=== PATIENT | male | born 1975 | race Hispanic/Latino ===

== ENCOUNTER 2017-09-13 20:25 | Emergency (ER) | payer SELFPAY ==
[2017-09-13] MEDS ORDERED: CLONIDINE HCL 0.1 MG TABLET ONE (21:17)
[2017-09-13 21:28] LABS: BASOPHILS % (AUTO) 1.1 % (0.0-5.0); EOSINOPHILS % (AUTO) 5.5 % (0.0-8.0); HEMATOCRIT 47.1 % (42-54); LYMPHOCYTES % (AUTO) 26.6 % (21.0-51.0); MEAN CORPUSCULAR HEMOGLOBIN 33.1 pg (27.0-33.0); MEAN CORPUSCULAR HGB CONC 35.3 g/dL (32.0-36.0); MEAN CORPUSCULAR VOLUME 93.8 fL (79-99); MONOCYTES % (AUTO) 9.5 % (3.0-13.0); NEUTROPHILS % (AUTO) 57.3 % (40.0-77.0); NUCLEATED RED BLOOD CELLS 0.2 % (0.0-0.19); PLATELET COUNT (AUTO) 175 K/uL (130-400); RED BLOOD CELL COUNT(AUTO) 5.02 MIL/uL (4.50-6.20); RED CELL DISTRIBUTION WIDTH 12.6 % (11.0-15.5); WHITE BLOOD COUNT (AUTO) 7.7 K/uL (4.8-10.8)
[2017-09-13 21:30] LABS: APPEARANCE,URINE Clear (CLEAR); BILIRUBIN,URINE Negative (NEGATIVE); COLOR,URINE Yellow (YELLOW); GLUCOSE, URINE (UA) 500 mg/dL (NEGATIVE); KETONES,URINE Negative (NEGATIVE); LEUKOCYTE ESTERASE ,URINE Negative (NEGATIVE); NITRATE,URINE Negative (NEGATIVE); OCCULT BLOOD,URINE Trace (NEGATIVE); PROTEIN,URINE Negative (NEGATIVE); UROBILINOGEN,URINE 0.2 mg/dL (0.2-1.0)
[2017-09-13 21:36] LABS: AMPHET/METH SCREEN,URINE NEGATIVE (NEGATIVE); BARBITURATE SCREEN, URINE NEGATIVE (NEGATIVE); BENZODIAZEPINES SCREEN,URINE NEGATIVE (NEGATIVE); CANNABINOID SCREEN,URINE NEGATIVE (NEGATIVE); COCAINE SCREEN,URINE POSITIVE (NEGATIVE); OPIATE SCREEN,URINE NEGATIVE (NEGATIVE); PHENCYCLIDINE SCREEN,URINE NEGATIVE (NEGATIVE)
[2017-09-13 21:37] LABS: CREATININE 0.7 mg/dL (0.5-1.5); POTASSIUM 3.8 mmol/L (3.5-5.1)
[2017-09-13 21:40] LABS: WBC,URINE 0-1 /HPF (0-1)
[2017-09-13 21:41] LABS: BACTERIA,URINE Rare /HPF (None Seen); SQUAMOUS EPITHELIAL CELL,UR None Seen /HPF (0-2)
[2017-09-13 21:42] LABS: ALBUMIN 3.2 g/dL (3.5-5.0); BILIRUBIN,TOTAL 0.5 mg/dL (0.2-1.0); TOTAL PROTEIN, SERUM 6.8 g/dL (6.0-8.3)
== END 2017-09-13 23:38 | disposition home or self-care (01) ==
LOC: EDH 20:25
DX: I10 Essential (primary) hypertension (principal); G89.29 Other chronic pain; M54.5 Low back pain; E11.9 Type 2 diabetes mellitus without complications; Z72.0 Tobacco use
CPT/HCPCS: 36415; 80053; 80305; 81001; 84484; 85025; 93005

== ENCOUNTER 2020-12-02 10:57 | Emergency (ER) | payer OTHER ==
[~2020-12-02] VITALS: Ht 172.7 cm; Wt 72.6 kg
[2020-12-02 11:17] VITALS: BP 145/84
[2020-12-02] MEDS ORDERED: IBUPROFEN 600 MG TABLET ONE (11:29)
[2020-12-02] MEDS ORDERED: IBUPROFEN 600 MG TABLET PO SCH (11:30)
== END 2020-12-02 11:40 | disposition home or self-care (01) ==
LOC: EDH 10:57
DX: S40.862A Insect bite (nonvenomous) of left upper arm, initial encounter (principal); M79.622 Pain in left upper arm; I10 Essential (primary) hypertension; E11.9 Type 2 diabetes mellitus without complications; F41.9 Anxiety disorder, unspecified; W57.XXXA Bitten or stung by nonvenomous insect and other nonvenomous arthropods, initial encounter; Y93.89 Activity, other specified; Y92.89 Other specified places as the place of occurrence of the external cause; Y99.8 Other external cause status
CPT/HCPCS: 99282

== ENCOUNTER 2020-12-20 21:24 | Emergency (ER) | payer OTHER ==
[~2020-12-20] VITALS: Ht 172.7 cm; Wt 74.4 kg
[2020-12-20] MEDS ORDERED: KETOROLAC 30MG VIAL (30MG/ML) IVP ONE (22:00)
[2020-12-20] MEDS ORDERED: 0.9%NACL 1000ML 1,000 ML IV ONE ×2 (22:00→22:19)
[2020-12-20 22:03] LABS: BASOPHILS % (AUTO) 0.5 % (0.0-5.0); EOSINOPHILS % (AUTO) 1.6 % (0.0-8.0); HEMATOCRIT 45.1 % (42-54); LYMPHOCYTES % (AUTO) 11.3 % (21.0-51.0); MEAN CORPUSCULAR HEMOGLOBIN 31.9 pg (27.0-33.0); MEAN CORPUSCULAR HGB CONC 36.6 g/dL (32.0-36.0); MEAN CORPUSCULAR VOLUME 87.2 fL (79-99); MONOCYTES % (AUTO) 7.4 % (3.0-13.0); NEUTROPHILS % (AUTO) 78.9 % (40.0-77.0); PLATELET COUNT (AUTO) 188 K/uL (130-400); RED BLOOD CELL COUNT(AUTO) 5.17 MIL/uL (4.50-6.20); RED CELL DISTRIBUTION WIDTH 12.1 % (11.0-15.5); WHITE BLOOD COUNT (AUTO) 12.7 K/uL (4.8-10.8)
[2020-12-20 22:20] LABS: CREATININE 0.8 mg/dL (0.5-1.5); POTASSIUM 3.3 mmol/L (3.5-5.1)
[2020-12-20 22:22] LABS: APPEARANCE,URINE Clear (CLEAR); BILIRUBIN,URINE Negative (NEGATIVE); COLOR,URINE Yellow (YELLOW); GLUCOSE, URINE (UA) >=1000 mg/dL (NEGATIVE); KETONES,URINE 15 mg/dL (NEGATIVE); LEUKOCYTE ESTERASE ,URINE Negative (NEGATIVE); NITRATE,URINE Negative (NEGATIVE); OCCULT BLOOD,URINE Nonhemolyzed Trace (NEGATIVE); PH,URINE 7.5 (5.0-8.0); PROTEIN,URINE Negative (NEGATIVE); UROBILINOGEN,URINE 0.2 mg/dL (0.2-1.0)
[2020-12-20 22:29] LABS: ALBUMIN 4.1 g/dL (3.5-5.0); BILIRUBIN,TOTAL 0.6 mg/dL (0.2-1.0); TOTAL PROTEIN, SERUM 8.2 g/dL (6.0-8.3)
[2020-12-20 22:32] LABS: BACTERIA,URINE Rare /HPF (None Seen); WBC,URINE 0-1 /HPF (0-1)
[2020-12-20 22:33] LABS: SQUAMOUS EPITHELIAL CELL,UR None Seen /HPF (0-2)
[2020-12-20 23:00] VITALS: BP 172/96
== END 2020-12-21 01:26 | disposition home or self-care (01) ==
LOC: EDH 21:24
DX: E11.65 Type 2 diabetes mellitus with hyperglycemia (principal); R51.9 Headache, unspecified; E78.00 Pure hypercholesterolemia, unspecified; I10 Essential (primary) hypertension; Z98.890 Other specified postprocedural states; Z79.1 Long term (current) use of non-steroidal anti-inflammatories (NSAID)
CPT/HCPCS: 36415; 80053; 81001; 83690; 85025; 96361; 96374; 99283; J1885; J7030

== ENCOUNTER 2021-10-10 19:27 | Emergency (ER) | payer OTHER ==
[~2021-10-10] VITALS: Ht 172.7 cm; Wt 83.0 kg
[2021-10-10 19:29] VITALS: BP 106/57
[2021-10-10] MEDS ORDERED: KETOROLAC 30MG VIAL (30MG/ML) IM ONE (20:30)
[2021-10-10] MEDS ORDERED: ORPHENADRINE CITRATE 30 MG/ML ML IM ONE (20:30)
[2021-10-10] MEDS ORDERED: NAPR500T6 PO (20:34)
[2021-10-10] MEDS ORDERED: CYCL10TA16 PO (20:34)
== END 2021-10-10 21:22 | disposition home or self-care (01) ==
LOC: EDH 19:27
DX: M54.6 Pain in thoracic spine (principal); I10 Essential (primary) hypertension; E11.9 Type 2 diabetes mellitus without complications; F32.9 Major depressive disorder, single episode, unspecified; F41.9 Anxiety disorder, unspecified; Z98.890 Other specified postprocedural states; Z79.899 Other long term (current) drug therapy
CPT/HCPCS: 93005; 96372 ×2; 99284; J1885; J2360

== ENCOUNTER 2021-11-25 19:29 | Emergency (ER) | payer OTHER ==
[~2021-11-25] VITALS: Ht 172.7 cm; Wt 83.5 kg
[~2021-11-25 19:29] MED LIST: CYCL10TA16 PO; NAPR500T6 PO
[2021-11-25] MEDS ORDERED: D-ME1POW16 PO (20:37)
[2021-11-25 20:39] VITALS: BP 146/77
== END 2021-11-25 20:49 | disposition home or self-care (01) ==
LOC: EDH 19:29
DX: J06.9 Acute upper respiratory infection, unspecified (principal); R05.9 Cough, unspecified; Z20.822 Contact with and (suspected) exposure to COVID-19; E11.9 Type 2 diabetes mellitus without complications; I10 Essential (primary) hypertension; F41.9 Anxiety disorder, unspecified; Z79.899 Other long term (current) drug therapy; Z98.890 Other specified postprocedural states
CPT/HCPCS: 87635; 87804 ×2; 87880; 99283; C9803

== ENCOUNTER 2022-09-28 17:03 | Emergency (ER) | payer BC, OTHER ==
[~2022-09-28] VITALS: Ht 172.7 cm; Wt 86.2 kg
[~2022-09-28 17:03] MED LIST changes: +D-ME1POW16 PO
[2022-09-28 17:12] VITALS: BP 177/87
[2022-09-28] MEDS ORDERED: KETO10TA2 PO (17:49)
[2022-09-28] MEDS ORDERED: CYCL5TAB PO (17:49)
== END 2022-09-28 17:58 | disposition home or self-care (01) ==
LOC: EDH 17:03
DX: M62.830 Muscle spasm of back (principal); E11.9 Type 2 diabetes mellitus without complications; I10 Essential (primary) hypertension

== ENCOUNTER 2022-10-31 08:25 | Emergency (ER) | payer BC ==
[~2022-10-31] VITALS: Ht 172.7 cm; Wt 83.9 kg
[~2022-10-31 08:25] MED LIST changes: +CYCL5TAB PO; +KETO10TA2 PO
[2022-10-31 08:28] VITALS: BP 131/85
[2022-10-31] MEDS ORDERED: SULF1TAB42 PO (08:31)
[2022-10-31] MEDS ORDERED: MUPI22OI2 TP (08:31)
[2022-10-31] MEDS ORDERED: IBUPROFEN 800 MG TAB PO ONE (09:00)
== END 2022-10-31 08:57 | disposition home or self-care (01) ==
LOC: EDH 08:25
DX: T63.301A Toxic effect of unspecified spider venom, accidental (unintentional), initial encounter (principal); I10 Essential (primary) hypertension; E11.9 Type 2 diabetes mellitus without complications; Z79.899 Other long term (current) drug therapy; Y92.89 Other specified places as the place of occurrence of the external cause

== ENCOUNTER 2022-12-31 07:29 | Emergency (ER) | payer BC, OTHER ==
[~2022-12-31] VITALS: Ht 172.7 cm; Wt 82.6 kg
[~2022-12-31 07:29] MED LIST changes: +MUPI22OI2 TP; +SULF1TAB42 PO
[2022-12-31] MEDS ORDERED: FAMOTIDINE 20MG TAB PO ONE (09:30)
[2022-12-31] MEDS ORDERED: KETOROLAC 10 MG TABLET PO SCH (09:30)
[2022-12-31] MEDS ORDERED: VALACYCLOVIR HCL 500 MG TABLET PO SCH (09:30)
[2022-12-31] MEDS ORDERED: VALA100031 PO (10:34)
[2022-12-31 11:08] VITALS: BP 136/84; PULSE 84; RESP 18; O2SAT 98
== END 2022-12-31 11:10 | disposition home or self-care (01) ==
LOC: EDH 07:29
DX: B02.9 Zoster without complications (principal); I10 Essential (primary) hypertension; E11.9 Type 2 diabetes mellitus without complications; F31.9 Bipolar disorder, unspecified; F41.9 Anxiety disorder, unspecified

== ENCOUNTER 2023-08-16 12:51 | Emergency (ER) | payer OTHER ==
[~2023-08-16] VITALS: Ht 172.7 cm; Wt 81.6 kg
[~2023-08-16 12:51] MED LIST changes: +VALA100031 PO
[2023-08-16 12:57] VITALS: RESP 14
[2023-08-16 13:02] VITALS: BP 126/75; PULSE 103; O2SAT 96
== END 2023-08-16 13:50 | disposition left against medical advice (07) ==
LOC: EDH 12:51
DX: R51.9 Headache, unspecified (principal); Z53.21 Procedure and treatment not carried out due to patient leaving prior to being seen by health care provider
CPT/HCPCS: 99281

== ENCOUNTER 2023-09-27 06:26 | Observation (INO) | payer OTHER ==
[~2023-09-27] VITALS: Ht 172.7 cm; Wt 79.4 kg
[2023-09-27 07:48] LABS: BASOPHILS # (AUTO) 0.04 K/uL (0.00-0.20); BASOPHILS % (AUTO) 0.6 % (0.0-5.0); EOSINOPHILS # (AUTO) 0.18 K/uL (0.00-0.70); EOSINOPHILS % (AUTO) 2.5 % (0.0-8.0); HEMATOCRIT 43.6 % (42-54); IMMATURE GRANULOCYTE ABSOLUTE 0.03 K/uL (0-1); LYMPHOCYTES # (AUTO) 1.4 K/uL (1.0-4.8); LYMPHOCYTES % (AUTO) 19.6 % (21.0-51.0); MEAN CORPUSCULAR HEMOGLOBIN 32.5 pg (27.0-33.0); MEAN CORPUSCULAR HGB CONC 36.9 g/dL (32.0-36.0); MEAN CORPUSCULAR VOLUME 88.1 fL (79-99); MONOCYTES # (AUTO) 1.3 K/uL (0.1-1.0); MONOCYTES % (AUTO) 18.2 % (3.0-13.0); NEUTROPHILS # (AUTO) 4.2 K/uL (1.8-7.7); NEUTROPHILS % (AUTO) 58.7 % (40.0-77.0); PLATELET COUNT (AUTO) 165 K/uL (130-400); RED BLOOD CELL COUNT(AUTO) 4.95 MIL/uL (4.50-6.20); RED CELL DISTRIBUTION WIDTH 12.3 % (11.0-15.5); WHITE BLOOD COUNT (AUTO) 7.2 K/uL (4.8-10.8)
[2023-09-27 08:03] LABS: ALBUMIN 3.3 g/dL (3.5-5.0); BILIRUBIN,TOTAL 0.7 mg/dL (0.2-1.0); CREATININE 0.7 mg/dL (0.5-1.3); POTASSIUM 3.9 mmol/L (3.5-5.1); TOTAL PROTEIN, SERUM 7.8 g/dL (6.0-8.3)
[2023-09-27] MEDS: FAMOTIDINE 20MG VIAL IV ONE (08:03)
[2023-09-27] MEDS: 0.9%NACL 1000ML 1,000 ML IV ONE (08:03)
[2023-09-27 08:04] LABS: APPEARANCE,URINE CLEAR (CLEAR); BILIRUBIN,URINE NEGATIVE (NEGATIVE); COLOR,URINE LIGHT-YELLOW (YELLOW); GLUCOSE, URINE (UA) 30 mg/dL (NEGATIVE); KETONES,URINE NEGATIVE (NEGATIVE); LEUKOCYTE ESTERASE ,URINE NEGATIVE Leu/uL (NEGATIVE); NITRATE,URINE NEGATIVE (NEGATIVE); PH,URINE 5.5 (5.0-8.0); PROTEIN,URINE 10 mg/dL (NEGATIVE); UROBILINOGEN,URINE 0.2 mg/dL (0.2-1.0)
[2023-09-27] MEDS: LORAZEPAM 2 MG/ML 1 ML VIAL IVP ONE (08:04)
[2023-09-27] MEDS: MAG/ALUM/SIMETH 30 ML UDCUP PO ONE (08:04)
[2023-09-27] MEDS: METOCLOPRAMIDE 10 MG/2 ML VIAL IVP ONE (08:04)
[2023-09-27] MEDS: LIDOCAINE HCL 2% VISCOUS 15 ML UDCUP PO ONE (08:04)
[2023-09-27] MEDS: DICYCLOMINE HCL 10 MG/5 ML ML PO ONE (08:04)
[2023-09-27] MEDS: NITROGLYCERIN 1GM OINT 1 INCH/1GM TD ONE (08:05)
[2023-09-27 08:08] LABS: ADD UA MICROSCOPIC YES
[2023-09-27 08:12] LABS: AMPHET/METH SCREEN,URINE NEGATIVE (NEGATIVE); BARBITURATE SCREEN, URINE NEGATIVE (NEGATIVE); BENZODIAZEPINES SCREEN,URINE NEGATIVE (NEGATIVE); CANNABINOID SCREEN,URINE NEGATIVE (NEGATIVE); COCAINE SCREEN,URINE POSITIVE (NEGATIVE); OPIATE SCREEN,URINE NEGATIVE (NEGATIVE); PHENCYCLIDINE SCREEN,URINE NEGATIVE (NEGATIVE)
[2023-09-27 08:30] LABS: MUCUS,URINE RARE LPF (None Seen); RBC,URINE 0-1 /HPF (0-1); WBC,URINE 0-1 /HPF (0-1)
[2023-09-27] MEDS: METRONIDAZOLE 500MG/100ML BAG 100 ML IVPB SCH (08:41)
[2023-09-27] MEDS: ASPIRIN 325MG TAB PO ONE (09:36)
[2023-09-27] MEDS ORDERED: POTASSIUM CHLORIDE 20MEQ/100ML 100 ML IV PRN (11:30)
[2023-09-27] MEDS ORDERED: POTASSIUM CHLORIDE 10% ELIXIR 20 MEQ/15 ML UDCUP PO PRN (11:30)
[2023-09-27] MEDS ORDERED: METRONIDAZOLE 500MG/100ML BAG 100 ML IVPB SCH (14:00)
[2023-09-27 19:46] VITALS: BP 148/84; PULSE 80; RESP 18
[2023-09-27 23:00] VITALS: BP 145/77; PULSE 80; RESP 18
[2023-09-27 23:22] VITALS: O2SAT 97
[2023-09-28 03:00] VITALS: BP 158/87; PULSE 77; RESP 18
[2023-09-28 05:54] LABS: BASOPHILS # (AUTO) 0.04 K/uL (0.00-0.20); BASOPHILS % (AUTO) 0.8 % (0.0-5.0); EOSINOPHILS # (AUTO) 0.18 K/uL (0.00-0.70); EOSINOPHILS % (AUTO) 3.6 % (0.0-8.0); HEMATOCRIT 42.5 % (42-54); IMMATURE GRANULOCYTE ABSOLUTE 0.02 K/uL (0-1); LYMPHOCYTES # (AUTO) 1.4 K/uL (1.0-4.8); MEAN CORPUSCULAR HEMOGLOBIN 32.7 pg (27.0-33.0); MEAN CORPUSCULAR HGB CONC 36.2 g/dL (32.0-36.0); MEAN CORPUSCULAR VOLUME 90.2 fL (79-99); MONOCYTES # (AUTO) 0.7 K/uL (0.1-1.0); NEUTROPHILS # (AUTO) 2.7 K/uL (1.8-7.7); NEUTROPHILS % (AUTO) 53.2 % (40.0-77.0); PLATELET COUNT (AUTO) 152 K/uL (130-400); RED BLOOD CELL COUNT(AUTO) 4.71 MIL/uL (4.50-6.20); RED CELL DISTRIBUTION WIDTH 12.3 % (11.0-15.5)
[2023-09-28 06:26] LABS: ALBUMIN 2.7 g/dL (3.5-5.0); BILIRUBIN,TOTAL 0.6 mg/dL (0.2-1.0); CREATININE 0.7 mg/dL (0.5-1.3); MAGNESIUM 1.6 mg/dL (1.80-2.40); POTASSIUM 3.7 mmol/L (3.5-5.1); TOTAL PROTEIN, SERUM 6.5 g/dL (6.0-8.3)
[2023-09-28] MEDS: MAGNESIUM 2GM PREMIX 50ML 50 ML IV PRN (07:28)
[2023-09-28 07:50] VITALS: BP 133/80; PULSE 69; RESP 18
[2023-09-28 08:00] VITALS: O2SAT 97
[2023-09-28] MEDS: KCL 20 MEQ ERTAB PO PRN (09:20)
[2023-09-28] MEDS ORDERED: GLIM2TAB30 PO (09:28)
[2023-09-28] MEDS ORDERED: MUPI22O TP (09:28)
[2023-09-28] MEDS ORDERED: BUSP15 PO (09:28)
[2023-09-28] MEDS ORDERED: LISI1TAB51 PO (09:28)
[2023-09-28] MEDS ORDERED: ALBU2.5V2 NEB (09:28)
[2023-09-28] MEDS ORDERED: PIOG15TA66 PO (09:28)
[2023-09-28] MEDS ORDERED: OMEP40CA21 PO (09:28)
[2023-09-28 11:51] VITALS: BP 146/83; PULSE 75; RESP 16
== END 2023-09-28 15:40 | disposition home or self-care (01) ==
LOC: EDH 06:26 → EDHIP 06:27 → 3AH 14:57
PROVIDERS: ADMIT Internal Medicine Infectious Disease; ATTEND Internal Medicine Infectious Disease
DX: K52.9 Noninfective gastroenteritis and colitis, unspecified (principal); I10 Essential (primary) hypertension; F31.9 Bipolar disorder, unspecified; E11.9 Type 2 diabetes mellitus without complications; F41.8 Other specified anxiety disorders; G43.909 Migraine, unspecified, not intractable, without status migrainosus; F14.10 Cocaine abuse, uncomplicated; Z79.899 Other long term (current) drug therapy
CPT/HCPCS: 96361; 96365; 96375 ×2; 99284; 82550; 84484 ×3; 80053 ×2; 80305; 83690; 85025 ×2; 82948 ×4; 83605; 81001; 36415 ×2; 93005; 83735; G0378 ×29; J3490 ×2; J7030; J2060; J2765; J3475

== ENCOUNTER 2023-10-16 10:37 | Emergency (ER) | payer BC, OTHER ==
[~2023-10-16] VITALS: Ht 172.7 cm; Wt 78.9 kg
[~2023-10-16 10:37] MED LIST changes: +ALBU2.5V2 NEB; +BUSP15 PO; +GLIM2TAB30 PO; -KETO10TA2 PO; +LISI1TAB51 PO; +MUPI22O TP; -MUPI22OI2 TP; +OMEP40CA21 PO; +PIOG15TA66 PO; -SULF1TAB42 PO; -VALA100031 PO
[2023-10-16 11:05] VITALS: BP 165/90; PULSE 85; RESP 17; O2SAT 95
== END 2023-10-16 13:42 | disposition left against medical advice (07) ==
LOC: EDH 10:37
DX: R04.0 Epistaxis (principal); I10 Essential (primary) hypertension; E11.9 Type 2 diabetes mellitus without complications; Z79.899 Other long term (current) drug therapy; Z98.890 Other specified postprocedural states
CPT/HCPCS: 99281

== ENCOUNTER 2024-05-28 09:40 | Emergency (ER) | payer BC ==
[~2024-05-28] VITALS: Ht 172.7 cm; Wt 84.4 kg
[~2024-05-28 09:40] MED LIST changes: -CYCL5TAB PO; +CYCL5TAB3 PO; +NAPR-1506 PO; -NAPR500T6 PO
[2024-05-28] MEDS ORDERED: DIPH25CA85 PO (10:25)
--- NOTE | 2024-05-28 10:25 | ERN ---
ED Note History of Present Illness Stated Complaint: ALLERGIC REACTION Chief Complaint: Allergic Reaction Time Seen by MD: 09:46 Dictation: 49-year-old male presents to the ED for evaluation of allergic reaction onset last night. Patient reports itchiness, loose stools, but denies any nausea, shortness a breath or any other associated symptoms at this time. Patient is allergic to pork and states they took pork tamales to work last night which may have caused his symptoms. Patient mentioned he had an episode where he strug gled to breathe but denies any shortness a breath at this time. Allergies: Coded Allergies: No Known Drug Allergies (Verified Allergy, Unknown, 04/24/16) Home Meds Active Scripts Diphenhydramine HCl (Benadryl) 25 Mg Capsule, 1 CAP PO HS for 30 Days, #30 CAP 0 Refills Prov:BOOKER PANDYA MD 05/28/24 Cyclobenzaprine HCl (Cyclobenzaprine HCl) 5 Mg Tablet, 10 MG PO Q8H PRN for PAIN for 7 Days, #21 TAB Prov:ROGERS MARTINES NP 09/28/22 D-Methorphan/PE/Acetaminophen (Theraflu Ms Severe Cold Pckt) 1 Each Powd.pack, 1 EACH PO QIDP, #20 PACK Prov:MARTHA WASHINGTON 11/25/21 Naproxen (Naproxen) 500 Mg Tablet.dr, 500 MG PO BIDPC, #15 TAB Prov:MATTHEW FREITASP 10/10/21 Cyclobenzaprine HCl (Flexeril) 10 Mg Tab, 10 MG PO TID, #15 TAB Prov:MATTHEW FREITAS SUPERVISOR BODY ASSEMBLY 10/10/21 Reported Medications Albuterol Sulfate (Albuterol Sulfate) 2.5 Mg/3 Ml (0.083 %) Vial.neb, 1 VIAL NEB Q6HPRN PRN for BRONCHOSPASMS 09/28/23 Mupirocin (Bactroban 2% Oint) 2 % Oint, 1 APPL TP TID 09/28/23 Omeprazole (Omeprazole) 40 Mg Capsule.dr, 1 CAP PO DAILY 09/28/23 Glimepiride (Glimepiride) 2 Mg Tablet, 1 TAB PO DAILY 09/28/23 Pioglitazone HCl (Pioglitazone HCl) 15 Mg Tablet, 1 TAB PO DAILY 09/28/23 Buspirone HCl (Buspar) 15 Mg Tab, 1 TAB PO BID 09/28/23 Lisinopril/Hydrochlorothiazide (Lisinopril-Hctz 20-12.5 mg Tab) 20 Mg-12.5 Mg Tablet, 1 TAB PO DAILY 09/28/23 Past Medical History Past Medical History: Anxiety, Bipolar, Depression, Diabetes-Type II, Hypertension Surgical History: Other Surgical History Other: L KNEE, L ARM Family History: Negative Social History: Negative Review of System Dictation Constitutional: Negative for fever,chills, and weight loss Eyes: Negative for injury, pain,redness, and discharge ENT: Negative for injury,pain or swelling Cardiovascular: Negative for chest pain, palpitations, and edema Respiratory: Negative for shortness of breath, cough, and wheezing, Abdomen/GI: Negative for abdominal pain, nausea, vomiting, diarrhea, and constipation Back: Negative for injury and pain : Negative for injury, bleeding and discharge MS/Extremity: Negative for injury and deformity Skin: Positive for allergic reaction, rash, itchiness Neuro: Negative for headache, weakness, numbness, tingling, and seizure Psych: Negative for suicide ideation, homicidal ideation, and hallucinations Initial Vital Sign VS Vital Signs Date Time Temp Pulse Resp B/P (MAP) Pulse Ox O2 Delivery O2 Flow Rate FiO2 05/28/24 09:43 98.2 83 18 185/89 99 05/28/24 10:28 Room Air* 0 21 Physical Exam Dictation General: awake, alert, NAD Head/Face: Normocephalic, atraumatic Eyes: PERRL, EOMI, vision at baseline ENT: oral cavity clear, TMs clear, no signs of infection Neck: Trachea midline, supple, no nuchal rigidity Cardiovascular: RRR, normal S1/S2, No MRGs, no JVD Respiratory: CTAB, no respiratory distress, No rales or wheezes Abdomen: Soft, non-tender, non-distended, normal bowel sounds, no guarding or rebound. Skin: Warm, dry, normal turgor, no rash MS/Extremity: Pulses equal, no cyanosis, neurovascular intact, FROM Neuro: COAx4, GCS 15, strength 5/5, CN 2-12 intact, normal cerebellar exam, normal gait, Psych: Normal behavior, mood, and affect normal ED Course ED Course Orders Procedure Category Date Status Time Dexamethasone 4mg/Ml PHA 05/28/24 Complete 1ml Vial (Dexametha 10:30 Current Medications Medications (Trade) Dose Ordered Sig/Jeff Route PRN Reason Start Time Stop Time Status Last Admin Dose Admin Dexamethasone Sodium Phosphate (dexaMETHasone 4MG/ML 1ML VIAL) 6 mg ONCE ONCE IM 05/28/24 10:30 05/28/24 10:31 DC 05/28/24 10:27 Vital Signs Date Time Temp Pulse Resp B/P (MAP) Pulse Ox O2 Delivery O2 Flow Rate FiO2 05/28/24 10:28 98.2 80 18 171/88 99 Room Air* 0 21 05/28/24 09:43 98.2 83 18 185/89 99 Medical Decision Making MDM MDM: Differential diagnosis: Rash, allergic reaction Previous outside records reviewed: Old ER visits. Need for hospitalization: Patient does not meet criteria for hospitalization. Need for emergency major/minor surgery: No Patient's prior external medical records from other ER visits were reviewed by me as indicated. Prior testing and results from previous visits were reviewed. Prior tests were taken into account with medical decision making and resource utilization, independent historian/historians were used to obtain complete medical history. I independently interpreted the test that were performed, results were reviewed by me and considered findings on radiology if ordered. Medical management and examination interpretation discussions were had by me with other qualified healthcare professionals as indicated for the patient's care. DX & DISP Disposition: Discharge Departure Impression: Primary Impression: Acute allergic reaction Condition: Stable Scripts Diphenhydramine HCl (Benadryl) 25 Mg Capsule 1 CAP PO HS for 30 Days, #30 CAP 0 Refills Prov: BOOKER PANDYA MD 05/28/24 Referrals: MARIA EUGENIA WOOD MD (PCP) I have reviewed, & agreed with my scribe's, documentation. (Entered by Reynaldo Santos, acting as a scribe for Dr. Pandya) I personally scribed for BOOKER PANDYA MD ([email or web address]) on 05/28/24 at 10:33. Electronically submitted by Reynaldo Santos ([email or web address]). BOOKER PANDYA MD May 28, 2024 10:25
[2024-05-28] MEDS: dexaMETHasone SOD PHOSPHATE 4 MG/ML 1ML VIAL IM ONE (10:27)
[2024-05-28 10:28] VITALS: BP 171/88; PULSE 80; RESP 18; TEMP 98.2; O2SAT 99
== END 2024-05-28 10:35 | disposition home or self-care (01) ==
LOC: EDH 09:40
DX: T78.1XXA Other adverse food reactions, not elsewhere classified, initial encounter (principal); L29.9 Pruritus, unspecified; E11.9 Type 2 diabetes mellitus without complications; I10 Essential (primary) hypertension; F41.9 Anxiety disorder, unspecified; F31.9 Bipolar disorder, unspecified; Z91.014 Allergy to mammalian meats; Z79.84 Long term (current) use of oral hypoglycemic drugs; Z79.899 Other long term (current) drug therapy; X58.XXXA Exposure to other specified factors, initial encounter
CPT/HCPCS: 99284; 96372; J1100

== ENCOUNTER 2024-08-14 20:03 | Emergency (ER) | payer BC ==
[~2024-08-14] VITALS: Ht 170.2 cm; Wt 99.8 kg
[~2024-08-14 20:03] MED LIST changes: +DIPH25CA85 PO
--- NOTE | 2024-08-14 20:47 | ERN ---
General Chief Complaint: Insect Bite Stated Complaint: ANIMAL BITE Time Seen by MD: 20:06 Time Seen by Midlevel: 20:06 Source: patient History of Present Illness Initial Comments 49-year-old male who presents to the emergency department due to an insect bites. States it occurred last night after getting home from work, noticed his hand swelling and getting red. The patient reports he took two Benadryl prior to arrival and is now feeling drowsy. Denies any further associated symptoms. PMHx anxiety, bipolar, HTN, DM Allergies: Coded Allergies: No Known Drug Allergies (Verified Allergy, Unknown, 04/24/16) Home Meds Active Scripts Diphenhydramine HCl (Benadryl) 25 Mg Capsule, 1 CAP PO HS for 30 Days, #30 CAP 0 Refills Prov:BOOKER PANDYA MD 05/28/24 Cyclobenzaprine HCl (Cyclobenzaprine HCl) 5 Mg Tablet, 10 MG PO Q8H PRN for PAIN for 7 Days, #21 TAB Prov:ROGERS MARTINES NP 09/28/22 D-Methorphan/PE/Acetaminophen (Theraflu Ms Severe Cold Pckt) 1 Each Powd.pack, 1 EACH PO QIDP, #20 PACK Prov:MARTHA WASHINGTON 11/25/21 Naproxen (Naproxen) 500 Mg Tablet.dr, 500 MG PO BIDPC, #15 TAB Prov:MATTHEW FREITAS ASIC DESIGN ENGINEER 10/10/21 Cyclobenzaprine HCl (Flexeril) 10 Mg Tab, 10 MG PO TID, #15 TAB Prov:MATTHEW FREITAS ASIC DESIGN ENGINEER 10/10/21 Reported Medications Albuterol Sulfate (Albuterol Sulfate) 2.5 Mg/3 Ml (0.083 %) Vial.neb, 1 VIAL NEB Q6HPRN PRN for BRONCHOSPASMS 09/28/23 Mupirocin (Bactroban 2% Oint) 2 % Oint, 1 APPL TP TID 09/28/23 Omeprazole (Omeprazole) 40 Mg Capsule.dr, 1 CAP PO DAILY 09/28/23 Glimepiride (Glimepiride) 2 Mg Tablet, 1 TAB PO DAILY 09/28/23 Pioglitazone HCl (Pioglitazone HCl) 15 Mg Tablet, 1 TAB PO DAILY 09/28/23 Buspirone HCl (Buspar) 15 Mg Tab, 1 TAB PO BID 09/28/23 Lisinopril/Hydrochlorothiazide (Lisinopril-Hctz 20-12.5 mg Tab) 20 Mg-12.5 Mg Tablet, 1 TAB PO DAILY 09/28/23 Past Medical History Past Medical History: Anxiety, Bipolar, Depression, Diabetes-Type II, Hypertension Past Surgical History: None Surgical History Other: L KNEE, L ARM Family History Family History: Negative Social History Social History: Negative ROS Dictation Constitutional: Negative for fever,chills, and weight loss Eyes: Negative for injury, pain,redness, and discharge ENT: Negative for injury,pain or swelling Cardiovascular: Negative for chest pain, palpitations, and edema Respiratory: Negative for shortness of breath, cough, and wheezing, Abdomen/GI: Negative for abdominal pain, nausea, vomiting, diarrhea, and constipation Back: Negative for injury and pain : Negative for painful urination, bleeding or discharge MS/Extremity: Negative for injury and deformity Skin: Positive for insect bites/rash Negative for rash, and discoloration Neuro: Negative for headache, weakness, numbness, tingling, and seizure Psych: Negative for suicide ideation, homicidal ideation, and hallucinations Physical Exam Physical Exam Dictation General: awake, alert, no acute distress Head/Face: Normocephalic, atraumatic Eyes: PERRL, EOMI, normal conjunctiva ENT: oral cavity clear, oral mucosa moist Neck: Supple, normal range of motion Cardiovascular: RRR, normal S1/S2 Respiratory: CTAB, no respiratory distress, no rales or wheezes Skin: Warm, dry, normal turgor, multiple insect bites generalized on the body, mild erythematous MS/Extremity: Pulses equal, no cyanosis, neurovascular intact, FROM Neuro: COAx4, GCS 15, strength 5/5, CN 2-12 intact, normal cerebellar exam, normal gait, Psych: Normal behavior, mood, and affect normal MDM MDM: Differential diagnosis: Insect bites, rash Rationale: 49-year-old male who presents to the emergency department due to an insect bites. States it occurred last night after getting home from work, n oticed his hand swelling and getting red. The patient reports he took two Benadryl prior to arrival and is now feeling drowsy. Denies any further associated symptoms. PMHx anxiety, bipolar, HTN, DM Per physical on examination multiple insect bites noted generalized to the body, hands are not swollen mildly erythematous. Patient was educated on the side effects of Benadryl. Advised to follow up with PCP. Return to the emergency department if any worsening symptoms. Patient verbalized understanding. P atient stable for discharge. There are no social concerns with this patient. I independently interpreted the test that were performed, results were reviewed by me and considered findings on radiology if ordered. Medical management and examination interpretation discussions were had by me with other qualified healthcare professionals as indicated for the patient's care. ED Course Vital Signs Date Time Temp Pulse Resp B/P (MAP) Pulse Ox O2 Delivery O2 Flow Rate FiO2 08/14/24 20:05 98.4 80 19 177/92 96 Room Air DX & DISP Disposition: Discharge Departure Impression: Primary Impression: Insect bites Condition: Stable Additional Instructions: Discharge home. Rest. Follow up with primary care DrEm in 24 hours. Return to the ER for any acute changes or worsening symptoms. If any medications were prescribed take as directed. Okay to continue home medications unless otherwise discussed during your visit in the emergency room today. Patient was also advised to follow-up with primary care physician in 1 to 2 days for continued monitoring. Referrals: MARIA EUGENIA WOOD MD (PCP) I performed the substantive portion of the visit. I have reviewed and personally made and approve the management plan that is documented in the notes by myself or the MONICA. I acknowledge full responsibility for the patient's management plan. BILL MONTANO Aug 14, 2024 20:47
[2024-08-14 21:32] VITALS: BP 167/97; PULSE 97; RESP 19; TEMP 98.4; O2SAT 98
== END 2024-08-14 21:32 | disposition home or self-care (01) ==
LOC: EDH 20:03
DX: S60.561A Insect bite (nonvenomous) of right hand, initial encounter (principal); S60.562A Insect bite (nonvenomous) of left hand, initial encounter; E11.9 Type 2 diabetes mellitus without complications; F31.9 Bipolar disorder, unspecified; F41.9 Anxiety disorder, unspecified; I10 Essential (primary) hypertension; Z79.84 Long term (current) use of oral hypoglycemic drugs; Z79.899 Other long term (current) drug therapy; W57.XXXA Bitten or stung by nonvenomous insect and other nonvenomous arthropods, initial encounter; Y93.89 Activity, other specified; Y92.89 Other specified places as the place of occurrence of the external cause; Y99.8 Other external cause status
CPT/HCPCS: 99281

== ENCOUNTER 2024-09-19 15:28 | Emergency (ER) | payer BC ==
[~2024-09-19] VITALS: Ht 172.7 cm; Wt 86.2 kg
[2024-09-19 15:43] VITALS: BP 159/88; PULSE 88; RESP 20; TEMP 98.9
[2024-09-19] MEDS ORDERED: CLIN-141 PO (16:07)
--- NOTE | 2024-09-19 16:08 | ERN ---
ED Note History of Present Illness Stated Complaint: FEET SWOLLEN,RED, BLISTER Chief Complaint: FOOT INJURY/PAIN Time Seen by MD: 15:33 Time Seen by Midlevel: 15:33 Dictation: The Patient is a 49-year-old male with a history of diabetes, hypertension, anxiety who presents to the emergency department with complaints of wound to right foot onset three days ago. Patient does not recall how he got the wound or if anything bit him but reports he accidentally rubbed it which made it worse. Denies any fevers or chills. Denies any nausea or vomiting. No other complaints reported. Allergies: Coded Allergies: No Known Drug Allergies (Verified Allergy, Unknown, 04/24/16) Home Meds Active Scripts Diphenhydramine HCl (Benadryl) 25 Mg Capsule, 1 CAP PO HS for 30 Days, #30 CAP 0 Refills Prov:BOOKER PANDYA MD 05/28/24 Cyclobenzaprine HCl (Cyclobenzaprine HCl) 5 Mg Tablet, 10 MG PO Q8H PRN for PAIN for 7 Days, #21 TAB Prov:ROGERS MARTINES NP 09/28/22 D-Methorphan/PE/Acetaminophen (Theraflu Ms Severe Cold Pckt) 1 Each Powd.pack, 1 EACH PO QIDP, #20 PACK Prov:MARTHA WASHINGTON 11/25/21 Naproxen (Naproxen) 500 Mg Tablet.dr, 500 MG PO BIDPC, #15 TAB Prov:MATTHEW FREITAS STOCK DRIVER 10/10/21 Cyclobenzaprine HCl (Flexeril) 10 Mg Tab, 10 MG PO TID, #15 TAB Prov:MATTHEW FREITAS STOCK DRIVER 10/10/21 Reported Medications Albuterol Sulfate (Albuterol Sulfate) 2.5 Mg/3 Ml (0.083 %) Vial.neb, 1 VIAL NEB Q6HPRN PRN for BRONCHOSPASMS 09/28/23 Mupirocin (Bactroban 2% Oint) 2 % Oint, 1 APPL TP TID 09/28/23 Omeprazole (Omeprazole) 40 Mg Capsule.dr, 1 CAP PO DAILY 09/28/23 Glimepiride (Glimepiride) 2 Mg Tablet, 1 TAB PO DAILY 09/28/23 Pioglitazone HCl (Pioglitazone HCl) 15 Mg Tablet, 1 TAB PO DAILY 09/28/23 Buspirone HCl (Buspar) 15 Mg Tab, 1 TAB PO BID 09/28/23 Lisinopril/Hydrochlorothiazide (Lisinopril-Hctz 20-12.5 mg Tab) 20 Mg-12.5 Mg Tablet, 1 TAB PO DAILY 09/28/23 Past Medical History Past Medical History: Anxiety, Bipolar, Depression, Diabetes-Type II, Hypertension Surgical History: None Surgical History Other: L KNEE, L ARM Family History: Negative Social History: Negative RN Note Reviewed/Agreed w/PFSH: Yes Review of System Dictation Constitutional: Negative for fever,chills, and weight loss Eyes: Negative for injury, pain,redness, and discharge ENT: Negative for injury,pain or swelling Cardiovascular: Negative for chest pain, palpitations, and edema Respiratory: Negative for shortness of breath, cough, and wheezing, Abdomen/GI: Negative for abdominal pain, nausea, vomiting, diarrhea, and constipation Back: Negative for injury and pain : Negative for injury, bleeding and discharge MS/Extremity: Negative for injury and deformity Skin: Negative for rash, and discoloration positive for wound to right foot Neuro: Negative for headache, weakness, numbness, tingling, and seizure Psych: Negative for suicide ideation, homicidal ideation, and hallucinations Initial Vital Sign VS Vital Signs Date Time Temp Pulse Resp B/P (MAP) Pulse Ox O2 Delivery O2 Flow Rate FiO2 09/19/24 15:43 99.0 88 20 159/88 98 Room Air Physical Exam Dictation Vital Signs reviewed General Appearance: Alert, oriented x 3, no acute distress, well developed, nourished. Head and Face: non-traumatic. Eyes: PERRL, pink conjunctivas, eyelid no trauma, anterior chamber with arcus senilis. Ears: Pinnas intact and no signs of trauma or erythema ear canals clear and no discharge TM no erythema Nose: No discharge, no bleeding. Oropharynx: Mouth normal, tongue pink. pharynx clear,no erythema, tonsils no exudates, no abscesses noted, mucous membrane moist Neck: Supple, non-tender, no thyromegaly, no masses, no JVD, no bruits Breast:Deferred Chest:No tenderness, no crepitus, no paradoxical movement, no retractions Lungs:Clear, well-ventilated, symmetric, no rales, no wheezing, no rhonchi, no stridor, good breath sounds bilaterally Heart: Regular rate, regular rhythm, no murmur, no gallops Vascular: no peripheral edema, Abdomen: Soft, positive bowel sounds, nondistended, no guarding, nontender, no rebound, no masses no hepatomegaly, no splenomegaly, no King's sign, no hernias. Rectal: Deferred Genital: Deferred Neurological: Normal speech, motor function intact, sensory function intact Musculoskeletal: Neck nontender, full range of motion, back nontender, full range of motion, Extremities: nontender, full range of motion Skin: Color pink, dry, no turgor, no rash, no lacerations, no abrasions, no cont usions. 1.5 cm in diameter. Erythema noted around wound. No drainage. Lymphatic: Deferred Results (Laboratory/Radiology) Labs Reviewed?: Yes ED Course ED Course Orders Procedure Category Date Status Time Clindamycin 150mg Cap PHA 09/19/24 Logged (Cleocin 150mg Cap 16:00 Vital Signs Date Time Temp Pulse Resp B/P (MAP) Pulse Ox O2 Delivery O2 Flow Rate FiO2 09/19/24 15:43 99.0 88 20 159/88 98 Room Air Medical Decision Making MDM The Patient is a 49-year-old male with a history of diabetes, hypertension, anxiety who presents to the emergency department with complaints of wound to right foot onset three days ago. Patient does not recall how he got the wound or if anything bit him but reports he accidentally rubbed it which made it worse. Denies any fevers or chills. Denies any nausea or vomiting. No other complaints reported. Patient with small non draining wound to dorsal aspect of right foot about 1.5 cm in diameter. Erythema noted around wound. No drainage. Patient with no fever, no tachycardia. Nontoxic appearance. Will be discharged with the antibiotics. Patient instructed to return to ER if symptoms worsen and to follow up with PCP. Differential diagnosis: Cellulitis, abscess, abrasion Need for hospitalization: Patient does not meet criteria for hospitalization. There are no social concerns with this patient. DX & DISP Disposition: Discharge Departure Impression: Primary Impression: Cellulitis of right foot Condition: Stable Scripts Clindamycin HCl (Clindamycin HCl) 300 Mg Capsule 1 CAP PO QID for 10 Days, #40 CAP 0 Refills Prov: FAVIAN DARLINGFLORENTINO ALCOCER 09/19/24 Additional Instructions: Please follow up with your doctor in 1-2 days. Take your antibiotics until fully finished even if symptoms over improving. If wound becomes worse, redness starts going up your leg in you develop fevers please return to ER. FOLLOW-UP WITH PRIMARY CARE PROVIDER IN 1 TO 2 DAYS. TAKE MEDICATIONS DIRECTED HERE IN THE EMERGENCY ROOM. OKAY TO CONTINUE HOME MEDICATIONS UNLESS OTHERWISE DISCUSSED DURING YOUR VISIT IN THE EMERGENCY ROOM TODAY. RETURN TO YOUR NEAREST EMERGENCY ROOM IF SYMPTOMS WORSEN OR IF THERE IS NO IMPROVEMENT. CALL 911 IF YOU NEED IMMEDIATE ASSISTANCE. TAKE TYLENOL OR MOTRIN [id number] NEEDED AND IF NO CONTRAINDICATIONS ARE PRESENT. INCREASE ORAL HYDRATION. A WOUND CULTURE OR URINE CULTURE WAS ORDERED HERE IN THE EMERGENCY ROOM DEPARTMENT PLEASE FOLLOW-UP WITH PRIMARY CARE PROVIDER AND ADVISE THEM TO GET REPEAT PORTS FROM OUR FACILITY. IF YOU HAD ANY AURELIA WRAP/SPLINTS THAT WERE APPLIED HERE, PLEASE DO NOT REMOVE THEM UNTIL YOU SEE YOUR PRIMARY CARE OR SPECIALTY. Referrals: KAREN MENJIVAR MD (PCP) Time of Disposition: 16:06 I have reviewed the case, and I agree with, Diagnosis and Plan FAVIAN DARLINGFLORENTINO ALCOCER Sep 19, 2024 16:08
--- NOTE | 2024-09-19 16:26 | NUR ---
BROUGHT IN TO TRIAGE FOR MED PASS AND DC INSTRUCTIONS.
[2024-09-19] MEDS: CLINDAMYCIN 150 MG CAP PO SCH (16:34)
== END 2024-09-19 16:39 | disposition home or self-care (01) ==
LOC: EDH 15:28
DX: L03.115 Cellulitis of right lower limb (principal); E11.9 Type 2 diabetes mellitus without complications; F31.9 Bipolar disorder, unspecified; F41.9 Anxiety disorder, unspecified; I10 Essential (primary) hypertension; Z79.84 Long term (current) use of oral hypoglycemic drugs; Z79.899 Other long term (current) drug therapy
CPT/HCPCS: 99283

== ENCOUNTER 2024-11-29 16:34 | Emergency (ER) | payer BC ==
[~2024-11-29] VITALS: Ht 172.7 cm; Wt 86.6 kg
[~2024-11-29 16:34] MED LIST changes: +CLIN-141 PO
[2024-11-29] MEDS: dexaMETHasone SOD PHOSPHATE 4 MG/ML 1ML VIAL IM ONE (17:18)
[2024-11-29] MEDS ORDERED: LORA10TA7 PO (17:45)
[2024-11-29] MEDS ORDERED: FLUT16H NS (17:45)
--- NOTE | 2024-11-29 17:46 | ERN ---
General Chief Complaint: Shortness of Breath Stated Complaint: SOB Time Seen by MD: 16:39 Source: patient History of Present Illness Initial Comments PATIENT IS A 49-YEAR-OLD GENTLEMAN COMING IN COMPLAINING OF URI SYMPTOMS. HE URI SYMPTOMS INCLUDE NASAL CONGESTION COUGH STATES THAT HE CHECKED HIS THROAT COUPLE OF DAYS AGO AND SAW A RED IN HIS THROAT. Allergies: Coded Allergies: No Known Drug Allergies (Verified Allergy, Unknown, 04/24/16) Home Meds Active Scripts Clindamycin HCl (Clindamycin HCl) 300 Mg Capsule, 1 CAP PO QID for 10 Days, #40 CAP 0 Refills Prov:JOSE DARLING APPLIER 09/19/24 Diphenhydramine HCl (Benadryl) 25 Mg Capsule, 1 CAP PO HS for 30 Days, #30 CAP 0 Refills Prov:BOOKER PANDYA MD 05/28/24 Cyclobenzaprine HCl (Cyclobenzaprine HCl) 5 Mg Tablet, 10 MG PO Q8H PRN for PAIN for 7 Days, #21 TAB Prov:ROGERS MARTINES NP 09/28/22 D-Methorphan/PE/Acetaminophen (Theraflu Ms Severe Cold Pckt) 1 Each Powd.pack, 1 EACH PO QIDP, #20 PACK Prov:MARTHA WASHINGTON 11/25/21 Naproxen (Naproxen) 500 Mg Tablet.dr, 500 MG PO BIDPC, #15 TAB Prov:MATTHEW FREITAS APPLIER 10/10/21 Cyclobenzaprine HCl (Flexeril) 10 Mg Tab, 10 MG PO TID, #15 TAB Prov:MATTHEW FREITAS APPLIER 10/10/21 Reported Medications Albuterol Sulfate (Albuterol Sulfate) 2.5 Mg/3 Ml (0.083 %) Vial.neb, 1 VIAL NEB Q6HPRN PRN for BRONCHOSPASMS 09/28/23 Mupirocin (Bactroban 2% Oint) 2 % Oint, 1 APPL TP TID 09/28/23 Omeprazole (Omeprazole) 40 Mg Capsule.dr, 1 CAP PO DAILY 09/28/23 Glimepiride (Glimepiride) 2 Mg Tablet, 1 TAB PO DAILY 09/28/23 Pioglitazone HCl (Pioglitazone HCl) 15 Mg Tablet, 1 TAB PO DAILY 09/28/23 Buspirone HCl (Buspar) 15 Mg Tab, 1 TAB PO BID 09/28/23 Lisinopril/Hydrochlorothiazide (Lisinopril-Hctz 20-12.5 mg Tab) 20 Mg-12.5 Mg Tablet, 1 TAB PO DAILY 09/28/23 Past Medical History Past Medical History: Anxiety, Bipolar, Depression, Diabetes-Type II, Hypertension, Other Medical History Other: covid Past Surgical History: Other Surgical History Other: left knee sx Family History Family History: Negative Social History Social History: Negative ROS Dictation CONSTITUTIONAL: NO CHILLS, NO FEVER, NO WEAKNESS, NO DIAPHORESIS, NO MALAISE. HEAD/FACE: NO SIGNS OF TRAUMA. EENT: NO EYE PAIN, NO BLURRED VISION, NO TEARING, NO DOUBLE VISION, NO EAR PAIN, NO EAR DISCHARGE, NO NOSE PAIN, NASAL CONGESTION, THROAT PAIN, NO THROAT SWELLING, NO MOUTH PAIN. RESPIRATORY: NO COUGH, NO ORTHOPNEA, NO SOB, NO STRIDOR, NO WHEEZING. CARDIOVASCULAR: NO CHEST PAIN, NO EDEMA, NO PALPITATIONS, NO SYNCOPE. GASTROINTESTINAL/ABDOMINAL: NO ABDOMINAL PAIN, NO CONSTIPATION, NO DIARRHEA, NO NAUSEA, NO VOMITING. GENITOURINARY: NO ABNORMAL DISCHARGE, NO DYSURIA, NO FREQUENT URINATION, NO HEMATURIA. NO COMPLAINTS OF PAIN IN THE GENITALS. MUSCULOSKELETAL: NO BACK PAIN, NO GOUT, NO JOINT PAIN, NO JOINT SWELLING, NO MUSCLE PAIN, NO MUSCLE STIFFNESS, NO NECK PAIN. INTEGUMENTARY: NO CHANGE IN COLOR, NO CHANGE IN HAIR/NAILS, NO DRYNESS, NO LESION, NO LUMPS, NO RASH. NEUROLOGICAL/PSYCH: NO ANXIETY, NOT DEPRESSED, NO EMOTIONAL PROBLEM, NO HEADACHE, NO NUMBNESS, NO PRE-EXISTING DEFICIT, NO HISTORY OF SEIZURES, NO TREMORS, NO WEAKNESS. HEMATOLOGIC/LYMPHATIC: NOT ANEMIC, NO HISTORY OF BLOOD CLOTS, NO APPARENT BLEEDING, NO BRUISING, GLANDS NOT SWOLLEN. ALL SYSTEMS NEGATIVE, EXCEPT NOTED. Physical Exam Physical Exam Dictation VITAL SIGNS: REVIEWED. GENERAL APPEARANCE: ALERT, ORIENTED X3, NO ACUTE DISTRESS, OBESE. HEAD AND FACE: NON-TRAUMATIC. EYES: PERRL, PINK CONJUNCTIVAS, EYELID NO TRAUMA, ANTERIOR CHAMBER CLEAR. EARS: PINNAS INTACT AND NO SIGNS OF TRAUMA OR ERYTHEMA. EAR CANALS CLEAR AND NO DISCHARGE. TMS NO ERYTHEMA. NOSE: NO DISCHARGE, NO BLEEDING. NASAL TURBINATE SWELLING BILATERAL OROPHARYNX: MOUTH NORMAL, TEETH NO CARIES, TONGUE PINK. PHARYNX ERYTHEMA. TONSILS NO EXUDATES, NO ABSCESSES NOTED. MUCOUS MEMBRANE MOIST. NECK: SUPPLE, NON-TENDER, NO THYROMEGALY, NO MASSES, NO JVD, NO BRUITS. BREAST: DEFERRED. CHEST: NO TENDERNESS, NO CREPITUS, NO PARADOXICAL MOVEMENT, NO RETRACTIONS. LUNGS: CLEAR, WELL-VENTILATED, SYMMETRIC, NO RALES, NO WHEEZING, NO RHONCHI, NO STRIDOR, GOOD BREATH SOUNDS BILATERALLY. HEART: REGULAR RATE, REGULAR RHYTHM, NO MURMUR, NO GALLOPS. VASCULAR: NO PERIPHERAL EDEMA. ABDOMEN: SOFT, POSITIVE BOWEL SOUNDS, NONDISTENDED, NO GUARDING, NONTENDER, NO REBOUND, NO MASSES NO HEPATOMEGALY, NO SPLENOMEGALY, NO MITCHELL'S SIGN, NO HERNIAS. RECTAL: DEFERRED. GENITAL: DEFERRED. NEUROLOGICAL: NORMAL SPEECH, GROSS MOTOR FUNCTION INTACT, GROSS SENSORY FUNCTION INTACT. MUSCULOSKELETAL: NECK NONTENDER, FULL RANGE OF MOTION, BACK NONTENDER, FULL RANGE OF MOTION. EXTREMITIES: NONTENDER, FULL RANGE OF MOTION. SKIN: COLOR PINK, DRY, NO TURGOR, NO RASH, NO LACERATIONS, NO ABRASIONS, NO CONTUSIONS. LYMPHATICS: DEFERRED. Results Laboratory and Microbiology Labs Reviewed?: Yes EKG/XRAY/US/CT/MRI EKG Comment 11/29/2024 TIME 4:52 P.M. VENTRICULAR RATE 75 SINUS RHYTHM MS [address] WAVE ELEVATION OR DEPRESSION X-RAY Comment CHEST X-RAY-NAD MDM MDM: DIFFERENTIAL DIAGNOSIS: SINUSITIS, COUGH, URI, RATIONALE: TESTS CONSIDERED AND ORDERED SECONDARY TO SHARED DECISION MAKING INCLUDE: PREVIOUS OUTSIDE RECORDS REVIEWED: OLD ER VISITS. RISK OF COMPLICATION AND/OR MORBIDITY OR MORTALITY OF PATIENT MANAGEMENT: NONE MEDICATIONS-PER MEDICATION RECONCILIATION NEED FOR HOSPITALIZATION: PATIENT DOES NOT MEET CRITERIA FOR HOSPITALIZATION. PATIENT IS A 49-YEAR-OLD MALE COMING IN COMPLAINING OF URI SYMPTOMS. CHEST X- RAY EKG HAS BEEN IN THE DISCLOSE ACUTE FINDINGS. ON PHYSICAL EXAM BILATERAL KNEE SWELLING OROPHARYNGEAL ERYTHEMA WITH DRAINAGE. SHE HAS BEEN PHYSICAL FINDINGS PATIENT WILL BE DISCHARGED WITH A DIAGNOSIS OF SINUSITIS. ED Course Orders Procedure Category Date Status Time 12 Lead Ekg Tracing- EKG 11/29/24 Logged Technical 16:42 Chest 1vw RAD 11/29/24 Taken 16:42 Dexamethasone 4mg/Ml PHA 11/29/24 Complete 1ml Vial (Dexametha 17:00 Current Medications Medications (Trade) Dose Ordered Sig/Jeff Route PRN Reason Start Time Stop Time Status Last Admin Dose Admin Dexamethasone Sodium Phosphate (dexaMETHasone 4MG/ML 1ML VIAL) 4 mg ONCE ONCE IM 11/29/24 17:00 11/29/24 17:01 DC 11/29/24 17:18 Vital Signs Date Time Temp Pulse Resp B/P (MAP) Pulse Ox O2 Delivery O2 Flow Rate FiO2 11/29/24 16:40 97.7 76 18 154/93 99 Room Air* 0 21 11/29/24 16:37 97.7 76 18 154/93 99 Room Air 0 DX & DISP Disposition: Discharge Departure Impression: Primary Impression: Sinusitis Condition: Stable Scripts Loratadine (Loratadine) 10 Mg Tablet 1 TAB PO DAILY for allergy symptoms for 30 Days, #30 TAB 0 Refills Prov: LIZ LEDESMA MD 11/29/24 Fluticasone Propionate (Flonase Nasal [place]) 50 Mcg/Actuation [place] 2 SPRAY NS DAILY, #16 GM 0 Refills Prov: LIZ LEDESMA MD 11/29/24 Additional Instructions: FOLLOW-UP WITH PRIMARY CARE PROVIDER IN 1 TO 2 DAYS. TAKE MEDICATIONS DIRECTED HERE IN THE EMERGENCY ROOM. OKAY TO CONTINUE HOME MEDICATIONS UNLESS OTHERWISE DISCUSSED DURING YOUR VISIT IN THE EMERGENCY ROOM TODAY. RETURN TO YOUR NEAREST EMERGENCY ROOM IF SYMPTOMS WORSEN OR IF THERE IS NO IMPROVEMENT. CALL 911 IF YOU NEED IMMEDIATE ASSISTANCE. TAKE TYLENOL [id number] NEEDED AND IF NO CONTRAINDICATIONS ARE PRESENT. INCREASE ORAL HYDRATION. A WOUND CULTURE OR URINE CULTURE WAS ORDERED HERE IN THE EMERGENCY ROOM DEPARTMENT PLEASE FOLLOW-UP WITH PRIMARY CARE PROVIDER AND ADVISE THEM TO GET REPORTS FROM OUR FACILITY. IF YOU HAD ANY AURELIA WRAP/SPLINTS THAT WERE APPLIED HERE, PLEASE DO NOT REMOVE THEM UNTIL YOU SEE YOUR PRIMARY CARE OR SPECIALTY. REFERRALS: Referrals: KAREN MENJIVAR MD (PCP) Time of Disposition: 17:44 LIZ LEDESMA MD Nov 29, 2024 17:46
[2024-11-29 17:51] VITALS: BP 156/85; PULSE 75; RESP 18; TEMP 97.7; O2SAT 99
--- NOTE | 2024-11-29 17:55 | HMCIMG ---
EXAM: CR Chest, 2 View. CLINICAL HISTORY: cough COMPARISON: None provided. FINDINGS: LUNGS: There is no mass, infiltrate, or acute pulmonary abnormality. PLEURAL SPACES: No pleural effusion or pneumothorax. MEDIASTINUM: Cardiac size and mediastinal contours within normal limits. BONES: No acute osseous abnormality. IMPRESSION: No acute cardiopulmonary pathology is evident. /[place]
--- NOTE | 2024-11-29 19:27 | EKG ---
[facility] Test Date: 2024-11-29 Test Time: 16:54:54 Pat Name: NATAN KANG Department: [facility] Room: Gender: M [employer] Operator: [id number] : [id number] Requested By: LIZ LEDESMA Order Number: [id number] Reading MD: Domenico Currie Measurements Intervals [place] Rate: 75 P: 1 VA: 152 QRS: -5 QRSD: 111 T: 92 QT: 378 QTc: 424 Interpretive Statements Sinus rhythm Probable left ventricular hypertrophy ST elev, probable normal early repol pattern Compared to ECG 09/27/2023 09:38:07 ST (T wave) deviation now present Myocardial infarct finding no longer present Electronically Signed On 11-30-2024 13:08:38 CDT by Domenico Currie Please click the below link to view image of tracing.
== END 2024-11-29 17:56 | disposition home or self-care (01) ==
LOC: EDH 16:34
DX: J32.9 Chronic sinusitis, unspecified (principal); F41.9 Anxiety disorder, unspecified; E11.9 Type 2 diabetes mellitus without complications; F31.9 Bipolar disorder, unspecified; I10 Essential (primary) hypertension; Z79.84 Long term (current) use of oral hypoglycemic drugs; Z79.899 Other long term (current) drug therapy
CPT/HCPCS: 99284; 71045; 96372; 93005; J1100